=== PATIENT | female | born 1985 | race Caucasian/White ===

== ENCOUNTER 2016-07-20 00:17 | Day surgery (SDC) | payer OTHER ==
--- NOTE | 2016-06-04 15:09 | NUR ---
No show Pt. did not show up for appointment. Attempted to call at number listed and went to voicemail. Message left to call us and would need rescheduling.
[2016-07-20] VITALS (15 sets, daily range): BP systolic 90–106; BP diastolic 60–74; PULSE 47–65; RESP 14–16; O2SAT 96–99
[~2016-07-20] VITALS: Ht 160 cm; Wt 86.0 kg
[~2016-07-20 00:17] MED LIST: BACL10TA PO; BUSP5TAB3 PO; CITA10TA14 PO; DIVA250T2 PO; LORA1TAB PO; MAGN250T29 PO; MECL-114 PO; METH-295 PO; POTA10CA42 PO
[2016-07-20] MEDS ORDERED: ALPR1TAB7 PO (12:58)
[2016-07-20] MEDS ORDERED: Atropine 1 mg/10 mL (Code) Syringe ONE (13:23)
--- NOTE | 2016-07-20 15:21 | PCM.PROC ---
Procedure Note Date of Service: Jul 20, 2016 Pre Procedure Diagnosis: Syncope and collapse Procedure: Tilt table test Provider and Architectural Designer: Rodrigo Gamino Jr, MD Mccarty, JERARDO Indication for Procedure: Syncope Findings: Patient was monitored for 40 minutes after being placed in standing position. Her oxygen saturation, vital signs, and rhythm were all monitored. Her HR was a low as 40 bpm but she was completely asymptomatic. Her rhythm was NSR and there were no ST-T changes during the tilt table test. Her O2 sats were normal and blood pressure was normal throughout the procedure as well. Post Procedure Plan: Proceed with exercise treadmill study to see if we are able to reproduce any of her symptoms. Follow up with me thereafter. Rodrigo Gamino MD Jul 20, 2016 15:21
--- NOTE | 2016-07-20 16:13 | NUR ---
Pt discharged home, ambulatory, VSS, IV discontinued. Pt given all discharge instructions and had no further questions at time of d/c.
== END 2016-07-20 23:59 | disposition home or self-care (01) ==
LOC: SOUO 00:17
PROVIDERS: ATTEND Internal Medicine Cardiovascular Disease
DX: R55 Syncope and collapse (principal); R00.0 Tachycardia, unspecified; F44.5 Conversion disorder with seizures or convulsions